=== PATIENT | male | born 1990 | race Caucasian/White ===

== ENCOUNTER 2019-12-19 04:24 | Emergency (ER) | payer SELFPAY ==
[~2019-12-19] VITALS: Ht 177.8 cm; Wt 81.8 kg
[2019-12-19 04:30] VITALS: BP 154/86; Ht 177.8 cm; Wt 81.8 kg
[2019-12-19] MEDS ORDERED: AMOXICILLIN500 M1 PO (05:02)
[2019-12-19] MEDS ORDERED: HYDROCODON-ACE1 EAC7 PO (05:02)
== END 2019-12-19 05:17 | disposition home or self-care (01) ==
LOC: D.ER 04:24
DX: K01.1 Impacted teeth (principal)

== ENCOUNTER 2020-05-05 01:48 | Emergency (ER) | payer MEDICAID ==
[~2020-05-05] VITALS: Ht 177.8 cm; Wt 90.9 kg
[~2020-05-05 01:48] MED LIST: AMOXICILLIN500 M1 PO; HYDROCODON-ACE1 EAC7 PO
[2020-05-05 01:57] VITALS: Ht 177.8 cm; Wt 90.9 kg
[2020-05-05 02:18] LABS: BASOPHILS 0.3 % (0-2); EOSINOPHILS 1.2 % (0-7); HEMATOCRIT 44.3 % (42.0-54.0); HEMOGLOBIN 15.3 g/dL (13.5-17.5); IMMATURE GRANULOCYTES 0.4 % (0-5); LYMPHOCYTES 22.1 % (15-50); MCH 31.9 pg (26.0-34.0); MCHC 34.5 g/dL (31.0-37.0); MCV 92.3 fL (80.0-100.0); MONOCYTES 8.4 % (2-11); NEUTROPHILS 67.6 % (40-80); PLATELET COUNT 305 10x3/uL (130-400); RDW 12.5 % (11.5-14.5); WBC 12.8 10x3/uL (4.8-10.8)
[2020-05-05 02:26] LABS: CALC OSMOLALITY 275 mosm/kg (275-300); CALCIUM 8.7 mg/dL (8.5-10.1); CARBON DIOXIDE 32.9 mmol/L (21.0-32.0); CHLORIDE - SERUM 102 mmol/L (98-107); CREATININE - SERUM 1.1 mg/dL (0.6-1.3); GLUCOSE 80 mg/dL (74-106); POTASSIUM - SERUM 3.1 mmol/L (3.5-5.1); SODIUM 140 mmol/L (136-145); UREA NITROGEN 8 mg/dL (7-18); eGFR NON AFRICAN AMERICAN 85 mL/min (90-120)
[2020-05-05] MEDS ORDERED: MONODOX100 MG PO (02:26)
[2020-05-05 02:31] LABS: ALKALINE PHOSPHATASE 49 U/L (30-120); ALT (SGPT) 31 U/L (10-68); BILIRUBIN - TOTAL 0.31 mg/dL (0.2-1.3); PROTEIN - SERUM 7.6 g/dL (6.4-8.2)
[2020-05-05 03:24] LABS: BILIRUBIN NEGATIVE (NEGATIVE); GLUCOSE NEGATIVE (NEGATIVE); KETONE NEGATIVE (NEGATIVE); NITRITE NEGATIVE (NEGATIVE); SPECIFIC GRAVITY 1.025 (1.005-1.020); UROBILINOGEN NORMAL (NORMAL)
[2020-05-05 03:25] LABS: BACTERIA FEW /hpf (NEGATIVE); EPITHELIAL CELLS 0-5 /hpf (0-5); RED CELLS - URINE 0-5 /hpf (0-5)
[2020-05-05 04:09] VITALS: BP 131/83
== END 2020-05-05 04:11 | disposition home or self-care (01) ==
LOC: D.ER 01:48
PROVIDERS: Family Medicine
DX: N45.1 Epididymitis (principal); N50.812 Left testicular pain